=== PATIENT | female | born 1965 | race Caucasian/White ===

== ENCOUNTER 2016-11-25 16:41 | Emergency (ER) | payer MEDICARE, MEDICAID ==
[~2016-11-25] VITALS: Ht 162.6 cm; Wt 55.0 kg
[2016-11-25 16:51] VITALS: BP 113/72; PULSE 94; RESP 16; TEMP 98.7; O2SAT 99
--- NOTE | 2016-11-25 17:42 | PD ---
HPI Chief Complaint: Chest Pain Time Seen by Provider: 17:09 Travel History International Travel<30 days: No Contact w/Intl Traveler<30days: No Traveled to known affect area: No History of Present Illness HPI 51-year-old female complains of left-sided chest pain and left upper back pain and shortness of breath. Patient states that the symptoms started a week ago. Patient states that the pain started aching pain and became sharp pain localized to left upper back and left chest. Patient denies any pain radiation. Patient denies any palpitations nausea diaphoresis. Patient has history of lung nodule and fibromyalgia. Patient denies any history hypertension or diabetes. Patient has history of hyperlipidemia. Patient is a smoker. Patient states that she had cardiac catheter done 3 in the past which were normal. Last cardiac catheter was a few years ago. Patient states that she had long distant travel in a car recently. Patient denies any history of DVT or PE. Patient is not on any hormone pills. Patient status post hysterectomy. Patient was seen by personal physician about a week and a half ago for a rash on the left-sided neck and the right side of face. Patient was given prescription was steroid and was taking it as directed. Patient states that she has persistent rash despite the medication. Patient states that she has family history of lung cancer. PFSH Past Medical History High Cholesterol: Yes Fibromyalgia: Yes Respiratory: Yes (LUNG NODULES, EMPHYSEMA) Influenza Vaccination: No ?: Not Past Surgical History Hysterectomy: Yes Social History Alcohol Use: No Tobacco Use: Yes Substance Use: Yes (MEDICAL MARIJUANA) Allergies-Medications (Allergen,Severity, Reaction): Coded Allergies: Penicillins (Verified Allergy, Unknown, Anaphylaxis, 11/25/16) acetaminophen (Verified Allergy, Unknown, Hives, 11/25/16) hydrocodone (Verified Allergy, Unknown, Hives, 11/25/16) latex (Verified Allergy, Unknown, Anaphylaxis, 11/25/16) metronidazole (Verified Allergy, Unknown, Anaphylaxis, 11/25/16) varenicline (Verified Allergy, Unknown, Anaphylaxis, 11/25/16) Reported Meds & Prescriptions Reported Meds & Active Scripts Active No Active Prescriptions or Reported Medications Review of Systems General / Constitutional: No: Fever Eyes: No: Visual changes HENT: No: Headaches Cardiovascular: Positive: Chest Pain or Discomfort Respiratory: Positive: Shortness of Breath Gastrointestinal: No: Abdominal Pain Genitourinary: No: Dysuria Musculoskeletal: No: Pain Skin: No Rash Neurologic: No: Weakness Psychiatric: No: Depression Endocrine: No: Polydipsia Hematologic/Lymphatic: No: Easy Bruising Physical Exam Narrative GENERAL: Well-nourished, well-developed patient. SKIN: Focused skin assessment warm/dry. HEAD: Normocephalic. EYES: No scleral icterus. No injection or drainage. NECK: Supple, trachea midline. No JVD or lymphadenopathy. CARDIOVASCULAR: Regular rate and rhythm without murmurs, gallops, or rubs. RESPIRATORY: Breath sounds equal bilaterally. No accessory muscle use. GASTROINTESTINAL: Abdomen soft, non-tender, nondistended. MUSCULOSKELETAL: No cyanosis, or edema. BACK: Nontender without obvious deformity. No CVA tenderness. Neurologic exam normal. Data Data Last Documented VS Vital Signs Date Time Temp Pulse Resp B/P (MAP) Pulse Ox O2 Delivery O2 Flow Rate FiO2 11/25/16 18:39 70 18 93/65 (74) 98 Room Air 11/25/16 16:51 98.7 Orders Orders Electrocardiogram (11/25/16 17:35) Complete Blood Count With Diff (11/25/16 17:35) Comprehensive Metabolic Panel (11/25/16 17:35) Creatine Kinase (Cpk) (11/25/16 17:35) Troponin I (11/25/16 17:35) Prothrombin Time / Inr (Pt) (11/25/16 17:35) Act Partial Throm Time (Ptt) (11/25/16 17:35) Chest, Single Ap (11/25/16 17:35) Iv Access Insert/Monitor (11/25/16 17:35) Ecg Monitoring (11/25/16 17:35) Oximetry (11/25/16 17:35) Ct Pulmonary Angiogram (11/25/16 17:35) Iohexol 350 Inj (Omnipaque 350 Inj) (11/25/16 18:54) Labs Laboratory Tests Test 11/25/16 17:52 White Blood Count 9.5 TH/MM3 Red Blood Count 4.29 MIL/MM3 Hemoglobin 13.6 GM/DL Hematocrit 39.8 % Mean Corpuscular Volume 92.7 FL Mean Corpuscular Hemoglobin 31.8 PG Mean Corpuscular Hemoglobin Concent 34.2 % Red Cell Distribution Width 12.2 % Platelet Count 283 TH/MM3 Mean Platelet Volume 8.9 FL Neutrophils (%) (Auto) 59.1 % Lymphocytes (%) (Auto) 33.8 % Monocytes (%) (Auto) 4.9 % Eosinophils (%) (Auto) 1.0 % Basophils (%) (Auto) 1.2 % Neutrophils # (Auto) 5.6 TH/MM3 Lymphocytes # (Auto) 3.2 TH/MM3 Monocytes # (Auto) 0.5 TH/MM3 Eosinophils # (Auto) 0.1 TH/MM3 Basophils # (Auto) 0.1 TH/MM3 CBC Comment DIFF FINAL Differential Comment Prothrombin Time 11.3 SEC Prothromb Time International Ratio 1.0 RATIO Activated Partial Thromboplast Time 30.1 SEC Blood Urea Nitrogen 14 MG/DL Creatinine 0.68 MG/DL Random Glucose 95 MG/DL Total Protein 7.1 GM/DL Albumin 3.6 GM/DL Calcium Level 8.7 MG/DL Alkaline Phosphatase 67 U/L Aspartate Amino Transf (AST/SGOT) 13 U/L Alanine Aminotransferase (ALT/SGPT) 17 U/L Total Bilirubin 0.4 MG/DL Sodium Level 138 MEQ/L Potassium Level 3.4 MEQ/L Chloride Level 105 MEQ/L Carbon Dioxide Level 26.6 MEQ/L Anion Gap 6 MEQ/L Estimat Glomerular Filtration Rate 92 ML/MIN Total Creatine Kinase 94 U/L Troponin I LESS THAN 0.02 NG/ML MDM Medical Decision Making Medical Screen Exam Complete: Yes Emergency Medical Condition: Yes Interpretation(s) Last Impressions Chest X-Ray 11/25/161734 Signed Impressions: Service Date/Time: Friday, November 25, 2016 17:49 - CONCLUSION: No acute disease. Hai Alvarez Jr., MD CT Angiography 11/25/161734 Signed Impressions: Service Date/Time: Friday, November 25, 2016 18:42 - CONCLUSION: 1. No pulmonary emboli. 2. Tiny cavitary lesions scattered throughout the lungs bilaterally. This could be the result of small septic emboli. 3. 5 mm nodule within the right middle lobe. This is nonspecific. Followup study in 6-12 months suggested. Hai Alvarez Jr., MD 194 PM. CBC within normal limit. CMP within normal limit. Cardiac enzymes are normal. Differential Diagnosis Differential diagnosis including musculoskeletal, neuralgia, angina, NV, PE, pneumothorax. Narrative Course 51-year-old female with left-sided chest pain or shortness of breath. History of lung nodules and patient is a smoker. I spoke with radiologist Dr. Craig about the CT pulmonary angiogram. Advised chronic changes. Advised patient to follow up with local physician and orthopedic rn in 6-[address] of the chest. Diagnosis Primary Impression: Atypical chest pain Additional Impression: Pulmonary nodule Patient Instructions: General Instructions Additional Instructions: Advised patient to stop smoking. Follow-up with orthopedic rn. Return if increasing chest pain shortness of breath. Med/Other Pt SpecificInfo: Prescription(s) given Scripts Meloxicam (Mobic) 15 Mg Tab 15 MG PO DAILY for Pain, #20 TAB 0 Refills Prov: James Bond MD 11/25/16 Disposition: 01 DISCHARGE HOME Condition: Stable James Bond MD Nov 25, 2016 17:42
[2016-11-25 17:53] VITALS: O2SAT 97
--- NOTE | 2016-11-25 18:11 | RADRPT ---
EXAM DATE/TIME: 11/25/2016 17:49 [facility] COMPARISON: No previous studies available for comparison. INDICATIONS : Chest pain. MEDICAL HISTORY : Lung nodule dx in 2012. SURGICAL HISTORY : None. ENCOUNTER: Initial ACUITY: 1 day PAIN SCORE: 5/10 LOCATION: Bilateral chest FINDINGS: A single view of the chest demonstrates the lungs to be symmetrically aerated without evidence of mas s, infiltrate or effusion. The cardiomediastinal contours are unremarkable. Osseous structures are intact. CONCLUSION: No acute disease. Hai Alvarez Jr., MD on November 25, 2016 at 18:06 Board Certified Radiologist. This report was verified electronically.
[2016-11-25 18:16] LABS: AUTOMATED NEUTROPHIL # 5.6 TH/MM3 (1.8-7.7); BASOPHIL # 0.1 TH/MM3 (0-0.2); BASOPHIL % 1.2 % (0.0-2.0); EOSINOPHIL # 0.1 TH/MM3 (0-0.4); HEMATOCRIT 39.8 % (35.0-46.0); HEMO FLAGS DIFF FINAL; LYMPH % 33.8 % (9.0-44.0); LYMPHOCYTE # 3.2 TH/MM3 (1.0-4.8); MEAN CELL VOLUME 92.7 FL (80.0-100.0); MEAN CORPUSCULAR HEMOGLOBIN 31.8 PG (27.0-34.0); MEAN CORPUSCULAR HGB CONC 34.2 % (32.0-36.0); MONO % 4.9 % (0.0-8.0); NEUT % 59.1 % (16.0-70.0); PLATELET COUNT 283 TH/MM3 (150-450); RED BLOOD COUNT 4.29 MIL/MM3 (4.00-5.30); RED CELL DISTRIBUTION WIDTH 12.2 % (11.6-17.2); WHITE BLOOD COUNT 9.5 TH/MM3 (4.0-11.0)
[2016-11-25 18:18] LABS: CHLORIDE 105 MEQ/L (98-107); POTASSIUM 3.4 MEQ/L (3.5-5.1); SODIUM (NA) 138 MEQ/L (136-145)
[2016-11-25 18:21] LABS: ANION GAP 6 MEQ/L (5-15); BICARBONATE 26.6 MEQ/L (21.0-32.0); BLOOD UREA NITROGEN 14 MG/DL (7-18)
[2016-11-25 18:23] LABS: APTT (PATIENT) 30.1 SEC (24.3-30.1); PROTHROMBIN TIME - PATIENT 11.3 SEC (9.8-11.6)
[2016-11-25 18:24] LABS: ALT (GPT) 17 U/L (10-53); AST (GOT) 13 U/L (15-37); GLOMERULAR FILTRATION RATE 92 ML/MIN (>89)
[2016-11-25 18:26] LABS: TOTAL BILIRUBIN ADULT 0.4 MG/DL (0.2-1.0)
[2016-11-25 18:27] LABS: ALKALINE PHOSPHATASE 67 U/L (45-117)
[2016-11-25 18:31] LABS: CREATINE KINASE 94 U/L (26-192)
[2016-11-25 18:39] VITALS: BP 93/65; PULSE 70; RESP 18; O2SAT 98
[2016-11-25] MEDS ORDERED: IOHEXOL 350 MG/ML 10 ML VIAL (for RAD DIAG) IVCONTRAST ONE (18:54)
--- NOTE | 2016-11-25 19:01 | RADRPT ---
EXAM DATE/TIME: 11/25/2016 18:42 [facility] COMPARISON: No previous studies available for comparison. INDICATIONS : Left back pain that comes around to the front, night sweats. IV CONTRAST: 70 cc Omnipaque 350 (iohexol) IV RADIATION DOSE: 5.83 CTDIvol (mGy) MEDICAL HISTORY : Hypercholesterolemia. Fibromyalgia, Lung nodules. SURGICAL HISTORY : None. ENCOUNTER: Initial ACUITY: 3 days PAIN SCALE: 8/10 LOCATION: Left chest TECHNIQUE: Volumetric scanning of the chest was performed using a pulmonary embolism protocol MIP images were re constructed. Using automated exposure control and adjustment of the mA and/or kV according to patien t size, radiation dose was kept as low as reasonably achievable to obtain optimal diagnostic quality images. DICOM format image data is available electronically for review and comparison. Follow-up recommendations for detected pulmonary nodules are based at a minimum on nodule size and pa tient risk factors according to Fleischner Society Guidelines. FINDINGS: PULMONARY ARTERIES: No filling defects are seen in the pulmonary arteries through the segmental level. LUNGS: Multiple tiny cavitary lesions are seen scattered throughout both lungs. These are less than 5 mm in size and are somewhat thick walled with an irregular shaggy wall. No air-fluid levels appreciated. Mi ld dependent atelectasis. A 5 mm smooth pulmonary nodule is seen involving the lateral segment of the right middle lobe. PLEURAE: There is no pleural thickening or pleural effusion. MEDIASTINUM: There is good visualization of the great vessels of the middle mediastinum. No evidence of mediastin al or hilar adenopathy/mass. MUSCULOSKELETAL: Within normal limits for patient age. MISCELLANEOUS: The visualized upper abdominal organs demonstrate no acute abnormality. CONCLUSION: 1. No pulmonary emboli. 2. Tiny cavitary lesions scattered throughout the lungs bilaterally. This could be the result of smal l septic emboli. 3. 5 mm nodule within the right middle lobe. This is nonspecific. Followup study in 6-12 months jessica peralta. Hai Alvarez Jr., MD on November 25, 2016 at 18:55 Board Certified Radiologist. This report was verified electronically.
[2016-11-25] MEDS ORDERED: MOBI15TA PO (19:52)
[2016-11-25 20:01] VITALS: BP 89/57; TEMP 98.5
--- NOTE | 2016-11-26 13:35 | EKG ---
Date Performed: 11/25/2016 Time Performed: 17:13:57 PTAGE: 51 years EKG: Sinus rhythm NORMAL ECG INTERPRETATION BASED ON A DEFAULT AGE OF 42 YEARS NO PREVIOUS TRACING DOCTOR: Lissy Ríos Interpretating Date/Time 11/26/2016 13:34:47
== END 2016-11-25 20:08 | disposition home or self-care (01) ==
LOC: PHED 16:41
DX: R07.89 Other chest pain (principal); R91.1 Solitary pulmonary nodule; M54.6 Pain in thoracic spine; R06.02 Shortness of breath; E78.5 Hyperlipidemia, unspecified; Z72.0 Tobacco use; Z87.39 Personal history of other diseases of the musculoskeletal system and connective tissue; Z87.09 Personal history of other diseases of the respiratory system
CPT/HCPCS: 71010; 71275; 80053; 82550; 84484; 85025; 85610; 85730; 93005; 99285; Q9967